=== PATIENT | male | born 1990 | race Caucasian/White ===

== ENCOUNTER 2025-05-30 07:07 | Emergency (ER) | payer SELFPAY ==
[2025-05-30 07:41] LABS: Absolute Lymphocytes (CBC) 1.0 K/uL (0.7-4.9); Hematocrit 40.9 % (39.6-49.0); Hemoglobin 14.3 g/dL (13.6-17.9); MCH 29.9 pg (27.0-35.0); MCHC 35.0 g/dL (32.0-36.0); MCV 85.4 fL (80-100); MPV 7.0 fL (7.6-11.3); Nucleated RBC Absolute Count 0.0 (0-0); Nucleated Red Blood Cells % 0.1 % (0-0); RBC Red Blood Cell Count 4.79 M/uL (4.33-5.43); White Blood Count 6.00 thou/uL (4.3-10.9)
--- NOTE | 2025-05-30 08:07 | RAD REPORT ---
Procedure: Chest Single View HISTORY: Shortness of breath COMPARISON: 2009 FINDINGS: The lungs appear clear of acute infiltrate. No significant pleural effusion noted. The heart is normal size. IMPRESSION: No acute abnormality is displayed.
[2025-05-30 08:08] LABS: Anion Gap 8.9 mEq/L (5.0-15.0); BUN Blood Urea Nitrogen 8.0 mg/dL (7-18); Glucose Level 99.0 mg/dL (74-106); Potassium 3.9 mEq/L (3.5-5.1); Troponin High Sensitivity 4.5 pg/mL (<58.9)
--- NOTE | 2025-05-30 08:33 | ER ---
Nurse's Notes [facility] Name: Bridger Rico Age: 34 yrs Sex: Male : 1990 Arrival Date: 05/30/2025 Time: 07:07 Bed 20 Private MD: Diagnosis: Essential (primary) hypertension Presentation: 05/30 07:25 Chief complaint: Patient states: had high BP reading , has been feeling shaky and SOB iw for a long time , denies chest pain. Coronavirus screen: At this time, the client does not indicate any symptoms associated with coronavirus-19. Ebola Screen: No symptoms or risks identified at this time. Initial Sepsis Screen: Does the patient meet any 2 criteria? No. Patient's initial sepsis screen is negative. Does the patient have a suspected source of infection? No. Patient's initial sepsis screen is negative. Risk Assessment: Do you want to hurt yourself or someone else? Patient reports no desire to harm self or others. Onset of symptoms was May 30, 2025. 07:25 Method Of Arrival: Ambulatory iw 07:25 Acuity: ORION 3 iw Historical: - Allergies: 07:26 No Known Allergies; iw - Home Meds: 07:26 None [Active]; iw - PMHx: 07:26 Anxiety; iw - PSHx: 07:26 None; iw - Immunization history:: Adult Immunizations not up to date. - Infectious Disease History:: Denies. - Social history:: Smoking status: Patient reports use of chewing tobacco. Patient uses alcohol, on a daily basis. 12 pack per day . Screenin:46 [facility] ED Fall Risk Assessment (Adult) History of falling in the last 3 months, iw including since admission No falls in past 3 months (0 pts) Confusion or Disorientation No (0 pts) Intoxicated or Sedated No (0 pts) Impaired Gait No (0 pts) Mobility Assist Device Used No (0 pt) Altered Elimination No (0 pt) Score/Fall Risk Level 0 - 2 = Low Risk Oriented to surroundings, Maintained a safe environment. Abuse screen: Denies threats or abuse. Nutritional screening: No deficits noted. Tuberculosis screening: No symptoms or risk factors identified. Assessment: 07:30 General: Appears in no apparent distress. Behavior is calm, cooperative. Pain: Denies iw pain. Neuro: Level of Consciousness is awake, alert, obeys commands, Oriented to person, place, time, situation, Moves all extremities. Full function Reports shakiness . Cardiovascular: Reports shortness of breath, Denies chest pain, Patient's skin is warm and dry. Respiratory: Respiratory effort is even, unlabored, Respiratory pattern is regular, symmetrical. GI: Abdomen is flat, non-distended. Derm: Skin is intact, is healthy with good turgor. Musculoskeletal: Range of motion: intact in all extremities. Vital Signs: 07:25 BP 155 / 82; Pulse 68; Resp 18; Pulse Ox 100% on R/A; Weight 81.65 kg; Height 5 ft. 8 iw in. ; Pain 0/10; 07:45 BP 137 / 79; Pulse 67; Resp 16; Pulse Ox 100% on R/A; iw 08:11 BP 129 / 87; Pulse 66; Resp 16; Pulse Ox 99% on R/A; iw 07:25 Body Mass Index 27.37 (81.65 kg, 172.72 cm) iw 07:25 Pain Scale: Adult iw ED Course: 07:12 Patient arrived in ED. gm2 07:13 Jamal Santillan DO is Attending Physician. ms3 07:15 Tasneem Kim, RN is Primary Nurse. iw 07:26 Triage completed. iw 07:27 Arm band placed on. iw 07:34 Initial lab(s) drawn, by me, sent to lab. Inserted saline lock: 20 gauge in right iw antecubital area, using aseptic technique. Blood collected. Flushed with 10 mL NS. 07:44 EKG done, by ED staff, reviewed by Jamal Santillan DO. ap3 07:47 Patient has correct armband on for positive identification. iw 08:00 XRAY Chest (1 view) In Process Unspecified. EDMS 08:33 Curtis Peralta DO is Referral Physician. ms3 08:44 No provider procedures requiring assistance completed. IV discontinued, intact, iw bleeding controlled, No redness/swelling at site. Pressure dressing applied. Administered Medications: No medications were administered Medication: 07:46 VIS not applicable for this client. iw Outcome: 08:33 Discharge ordered by . ms3 08:44 Discharged to home ambulatory, iw 08:44 Condition: good 08:44 Discharge instructions given to patient, Instructed on discharge instructions, follow up and referral plans. Demonstrated understanding of instructions, follow-up care, 08:47 Patient left the ED. ss Signatures: Dispatcher [employer] Tasneem Mitchell RN RN iw Blanchard, Shelby, RN RN ss Prokisch, Amanda, RN RN ap3 Jamal Santillan DO DO ms3 Kathryn Irving 2
--- NOTE | 2025-05-30 08:33 | EDPHYS ---
Physician Documentation [facility] Name: Bridger Rico Age: 34 yrs Sex: Male : 1990 Arrival Date: 05/30/2025 Time: 07:07 Bed 20 Private MD: ED Physician Jamal Santillan HPI: 05/30 07:22 This 34 yrs old Male presents to ER via Unassigned with complaints of High Blood ms3 Pressure. 07:22 . ms3 07:23 34-year-old male with no past medical history presents to the emergency department for ms3 2 days of elevated blood pressure. Patient states his blood pressure has been running 150s over 80s. Patient denies chest pain, headache, nausea, vomiting. Patient endorses longstanding history of shortness of breath and shaking in the mornings.. Historical: - Allergies: 07:26 No Known Allergies; iw - Home Meds: 07:26 None [Active]; iw - PMHx: 07:26 Anxiety; iw - PSHx: 07:26 None; iw - Immunization history:: Adult Immunizations not up to date. - Infectious Disease History:: Denies. - Social history:: Smoking status: Patient reports use of chewing tobacco. Patient uses alcohol, on a daily basis. 12 pack per day . ROS: 07:23 Constitutional: Negative for fever, and chills. Cardiovascular: Negative for chest ms3 pain, and palpitations. Abdomen/GI: Negative for abdominal pain, nausea, vomiting, diarrhea, and constipation, 07:23 Skin: Negative for injury, rash, and discoloration, 07:23 Respiratory: Positive for shortness of breath, 07:23 Neuro: Positive for tremor, Exam: 07:23 Constitutional: This is a well developed, well nourished patient who is awake, alert, ms3 and in no acute distress. Cardiovascular: Regular rate and rhythm with a normal S1 and S2. No gallops, murmurs, or rubs. Normal PMI, no JVD. No pulse deficits. Respiratory: Lungs have equal breath sounds bilaterally, clear to auscultation and percussion. No rales, rhonchi or wheezes noted. No increased work of breathing, no retractions or nasal flaring. Abdomen/GI: Soft, non-tender, with normal bowel sounds. No distension or tympany. No guarding or rebound. No evidence of tenderness throughout. Skin: Warm, dry with normal turgor. Normal color with no rashes, no lesions, and no evidence of cellulitis. MS/ Extremity: Pulses equal, no cyanosis. Neurovascular intact. Full, normal range of motion. Neuro: Awake and alert, GCS 15, oriented to person, place, time, and situation. Cranial nerves II-XII grossly intact. Motor strength 5/5 in all extremities. Sensory grossly intact. Cerebellar exam normal. Normal gait. 07:45 ECG was reviewed by the Attending Physician. ms3 Vital Signs: 07:25 BP 155 / 82; Pulse 68; Resp 18; Pulse Ox 100% on R/A; Weight 81.65 kg; Height 5 ft. 8 iw in. ; Pain 0/10; 07:45 BP 137 / 79; Pulse 67; Resp 16; Pulse Ox 100% on R/A; iw 08:11 BP 129 / 87; Pulse 66; Resp 16; Pulse Ox 99% on R/A; iw 07:25 Body Mass Index 27.37 (81.65 kg, 172.72 cm) iw 07:25 Pain Scale: Adult iw MDM: 07:15 Medical Screening Exam initiated bryanna 07:23 Differential diagnosis: hypertensive crisis, Electrolyte abnormality versus ms3 hypertension. 08:43 Data reviewed: vital signs, nurses notes, lab test result(s), EKG, radiologic studies, ms3 and as a result, I will discharge patient. Independent interpretation of the following test(s) in the Emergency Department EKG: See my EKG interpretation above X-Ray: My interpretation is Chest x-ray images reviewed by me do not reveal pulmonary edema or pneumonia. 05/30 07:22 Order name: Basic Metabolic Panel; Complete Time: 08:21 ms3 05/30 07:22 Order name: CBC with Diff; Complete Time: 08:21 ms3 05/30 07:22 Order name: Troponin HS; Complete Time: 08:21 ms3 05/30 07:22 Order name: XRAY Chest (1 view); Complete Time: 08:21 ms3 05/30 07:22 Order name: EKG; Complete Time: 07:22 ms3 05/30 07:22 Order name: Cardiac monitoring; Complete Time: 07:33 ms3 05/30 07:22 Order name: EKG - Nurse/Tech; Complete Time: 07:44 ms3 05/30 07:22 Order name: IV Saline Lock; Complete Time: 33 ms3 05/30 07:22 Order name: Labs collected and sent; Complete Time: ms3 05/30 07:22 Order name: O2 Per Protocol; Complete Time: ms3 05/30 07:22 Order name: O2 Sat Monitoring; Complete Time: :33 ms3 EC:45 Rate is 61 beats/min. Rhythm is regular. QRS [place] is Normal. OK interval is normal. QRS ms3 interval is normal. Clinical impression: Normal ECG. Interpreted by me. Reviewed by me. Administered Medications: No medications were administered Disposition Summary: 05/30/25 08:33 Discharge Ordered Notes: Location: Home ms3 Condition: Stable ms3 Diagnosis - Essential (primary) hypertension ms3 Followup: ms3 - With: Curtis Peralta DO - When: 2 - 3 days - Reason: Recheck today's complaints Discharge Instructions: - Discharge Summary Sheet ms3 - Hypertension, Adult ms3 - DASH Eating Plan ms3 Forms: - Medication Reconciliation Form ms3 - Antibiotic Education ms3 - Prescription Opioid Use ms3 - Patient Portal Instructions ms3 - Leadership Thank You Letter ms3 Signatures: Dispatcher [employer] Rik Evans MD MD cha Williams, Irene, RN RN Jamal Trivedi DO DO ms3
[2025-05-30 08:55] VITALS: BP 129/87; O2SAT 99
== END 2025-05-30 08:47 | disposition home or self-care (01) ==
LOC: ER 07:07
DX: I10 Essential (primary) hypertension (principal); F17.220 Nicotine dependence, chewing tobacco, uncomplicated
CPT/HCPCS: 36415; 71045; 80048; 84484; 85025; 93005; 99284